=== PATIENT | male | born 1955 | race Caucasian/White ===

== ENCOUNTER 2018-10-31 10:40 | Emergency (ER) | payer MEDICAID, SELFPAY ==
[2018-10-31 10:42] VITALS: BP 139/74; PULSE 69; RESP 12; TEMP 36.1; O2SAT 94; BMI 27.8
--- NOTE | 2018-10-31 11:08 | CT_ITS ---
STUDY: CT BRAIN WITHOUT CONTRAST REASON FOR EXAM: Male, 62 years old. Headache for a couple days RADIATION DOSAGE (If Supplied By Facility): CTDIvol = ( 60.81 ) mGy, DLP = ( 1249.53 ) mGycm TECHNIQUE: Transaxial CT imaging of the brain was performed without administration of intravenous contrast material. Individualized dose optimization techniques were used for this CT. COMPARISON: No relevant priors. FINDINGS: Normal soft tissue structures. Normal calvarium. Normal size ventricles and extra-axial spaces for the patient's age. Normal white matter tracts of the cerebral hemispheres. Normal basal ganglia and thalami. Normal brainstem. Normal cerebellum. There is no intracranial hemorrhage. There are no findings of an acute ischemic infarction. Normal visualized paranasal sinuses. CT/Brain/Head without Contrast IMPRESSION: Normal unenhanced CT scan of the brain. Electronically Signed: Yann Elizalde MD ([facility]) at 11:45 EDT , Service support ,
--- NOTE | 2018-10-31 11:10 | ED.VIS.GEN ---
History of Present Illness Chief Complaint: Headache Informant: Patient Onset: Days Current Severity: Mild Narrative: Patient has history of diabetes depression anxiety per his history he also has a nonspecific tremor he is followed by outpatient providers, he reports for days he has had a sense of just generalized fatigue mild frontal headache, he is eating and drinking well normal bowel bladder habits, he takes oral medications for his diabetes he does not routinely check his blood sugar he came into be evaluated for all the above he was able to drive to the hospital without difficulty lives with his brother Past Medical History - Allergies and Home Meds Allergies/Adverse Reactions: Allergies No Known Allergies Allergy (Verified 12/26/16 10:50) Primary Care Physician: Марина Zuniga MD [Primary Care Provider] - Past Medical History: - Surgical History: cholecystectomy Smoking Status: Never smoker Review of Systems ROS: - As above General: Denies: Chills, Fever, Sweats Eyes: Denies: Visual changes - bilaterally, Diplopia ENT: Denies: Rhinorrhea, Sore throat Cardiovascular: Denies: Chest pain, Palpitations Respiratory: Denies: Dyspnea, Cough, Dyspnea on exertion Gastrointestinal: Denies: Abdominal pain, Nausea, Vomiting, Diarrhea, Melena, Hematochezia Genitourinary: Denies: Dysuria, Hematuria, Frequency Musculoskeletal: Denies: Back pain, Extremity Pain Skin: Denies: Rash, Wounds Neurological: Reports: Headache, - - Mild intermittent frontal headaches generalized fatigue. Denies: Weakness, Numbness Physical Exam Vital Signs/Narrative: Vital Signs Temp Pulse Resp BP Pulse Ox 10/31/18 10:42 97 F L 69 12 139/74 H 94 General: Well nourished, Well developed, No Acute Distress Head: Normocephalic, Atraumatic Eyes: Perrl, EOMI ENT: Moist mucous membranes, No rhinorrhea Neck: Supple, Nontender Cardiovascular: Regular rate, Regular rhythm, No murmurs Respiratory: No distress, CTA bilaterally, Chest nontender Abdomen: Soft, Nontender, Nondistended, Normal bowel sounds Back: Nontender, Normal Inspection Extremities: Nontender, No edema Skin: Normal color, No rash Neurological: Alert, Oriented x3, Cranial nerves II-XII grossly intact, Normal Strength, Normal Sensation Psychological: Normal affect, Normal Mood Diagnostic/Tx/Re-eval - Medical Decision Making The patient looks well his vital signs are unremarkable he has a resting tremor primarily of his neck and upper body that he states is not new when he is been evaluated for it his neurologic exam is unremarkable he complains of his generalized fatigue syndrome no chest pain no fever no cough no bowel bladder habits and a mild frontal headache IV fluid screening labs Patient screening labs are all generally unremarkable, as is EKG sinus rhythm rate of 70 no injury or acute injury pattern troponin chest x-ray and head CT see those reports explained test results to him at this time the constellation of his fatigue mild headache is unclear he is comfortable discharge home follow-up with his outpatient providers for further management evaluation Home stable Final impression Nonspecific sense of fatigue, frontal headache intermittently ED Disposition - Plan for ED Patient: Diagnosis: Fatigue Instructions: HEADACHE, Unspecified Referrals: Марина Zuniga MD [Primary Care Provider] -
[2018-10-31 11:11] LABS: Bedside Glucose 142 mg/dL (70-110)
--- NOTE | 2018-10-31 11:12 | RAD_ITS ---
STUDY: X-RAY CHEST REASON FOR EXAM: Male, 62 years old. Headache TECHNIQUE: AP COMPARISON: 08/27/2015 FINDINGS: Right hemidiaphragm is elevated, stable. There is no demonstrated pleural abnormality. Normal size heart. Normal mediastinum and laxmi. Normal visualized pulmonary arteries. Normal visualized aortic arch and descending thoracic aorta. Normal visualized thoracic spine. Normal visualized ribs, clavicles, and shoulders. There is no demonstrated abnormality of the visualized soft tissue structures of the upper abdomen. RAD/Chest 1 View (Portable) IMPRESSION: 1. Stable, nonacute x-ray examination of the chest. Electronically Signed: Yann Elizalde MD ([place]) at 12:01 EDT , Service support ,
--- NOTE | 2018-10-31 11:12 | EKG12_ITS ---
Test Reason : HEADACHE Blood Pressure : / mmHG Vent. Rate : 066 BPM Atrial Rate : 066 BPM P-R Int : 160 ms QRS Dur : 104 ms QT Int : 454 ms P-R-T Axes : 016 022 046 degrees QTc Int : 475 ms Normal sinus rhythm Normal ECG Confirmed by MAGALY SUGGS, KACEY ([id number]), graphics editor VIJAY DALAL ([id number]) on 11/03/2018 11:46:08 AM Referred By: VERONICA Confirmed By:KACEY MCKENZIE MD
[2018-10-31 11:13] LABS: Absolute Lymphocyte Count 1.48 X10^3/uL (0.83-4.51); Absolute Neutrophil Count 2.4 X10^3/uL (2.0-7.7); Basophil# 0.04 X10^3/uL; Basophil% 0.9 % (0-1); Eosinophils% 2.3 % (0-5); Hemoglobin 13.7 g/dL (13.0-16.5); Lymphocyte # 1.48 X10^3/ul (4.0); Mean Corp Hgb Conc 31.9 g/dL (32-36); Mean Corpuscular Volume 91.1 fL (80-94); Mean Platelet Vol. 9.9 fl (6.2-12.0); Monocyte# 0.33 X10^3/uL; Monocyte% 7.6 % (0-10); NRBC Flagged by Analyzer 0 % (0-5); Neutrophil # 2.39 X10^3/uL (2.7-7.7); Platelet Count 172 K/mm3 (150-450); RBC Distribution Width CV 13.3 % (11.6-14.6); Red Blood Count 4.72 M/mm3 (4.6-6.2); White Blood Count 4.4 K/mm3 (4.4-11.0)
[2018-10-31] MEDS: 0.9% Normal Saline 1,000 ML 999 ML IV (11:15)
[2018-10-31 11:35] LABS: Anion Gap 5 (5-15); BUN 14 mg/dL (7-18); BUN/Creat Ratio 14.6 RATIO (10-20); Calcium,Total 8.9 mg/dL (8.5-10.1); Chloride 101 mmol/L (98-107); Creatinine, Serum 0.96 mg/dL (0.70-1.30); EST Glomerular Filtration Rate 84 mL/min (>60); Est Glom Filt Rate - Afr Amer 102 mL/min (>60); Estimated Creatinine Clearance 100.55 ml/min; Glucose 141 mg/dL (74-106); Potassium 3.6 mmol/L (3.5-5.1); Sodium Level 140 mmol/L (136-145)
[2018-10-31 12:02] LABS: Red Blood Cells-Urine 0 SEEN /hpf (0-5); White Blood Cells 0 SEEN /hpf (0-5)
[2018-10-31 12:11] LABS: Color, Urine Yellow (Yellow); Glucose, Dipstick Normal (Normal); Ketone-Dipstick Negative (Negative); Leukocyte Esterase-Dipstick Negative /ul (Negative); Nitrite-Dipstick Negative (Negative); Occult Blood-Urine Negative /ul (Negative); Protein-Dipstick Negative (Negative); Urine Bilirubin Dipstick Negative (Negative); Urine Clarity Clear (Clear); Urine Urobilinogen 1 mg/dl (Normal)
[2018-10-31 12:27] LABS: Bacteria RARE /hpf (None Seen); Mucous, Urine RARE /hpf (<or=2+); Squamous Epithelial Cells - UA 0-5 SEEN /hpf (0-5)
[2018-10-31 13:07] VITALS: BP 150/84; PULSE 61; RESP 16
== END 2018-10-31 13:16 | disposition home or self-care (01) ==
LOC: ED 11:18
PROVIDERS: Emergency Provider Emergency Medicine; Family Provider Internal Medicine; PCP Internal Medicine
DX: R51 Headache (principal); R53.83 Other fatigue; R25.1 Tremor, unspecified; E11.9 Type 2 diabetes mellitus without complications; F32.9 Major depressive disorder, single episode, unspecified; F41.9 Anxiety disorder, unspecified; Z79.84 Long term (current) use of oral hypoglycemic drugs; Z79.899 Other long term (current) drug therapy; Z90.49 Acquired absence of other specified parts of digestive tract
CPT/HCPCS: 70450; 71045; 80048; 81001; 82009; 82962; 84484; 85025; 87086; 93005; 96360; 99283; J7030; A4216